=== PATIENT | male | born 1970 | race American Indian/Alaskan Native ===

== ENCOUNTER 2017-06-14 15:04 | Emergency (ER) | payer MEDICAID ==
[2017-06-14 15:09] VITALS: BP 160/85; PULSE 60; RESP 16; O2SAT 99
[2017-06-14 16:47] VITALS: TEMP 100.3
--- NOTE | 2017-06-14 17:10 | ED PDOC ---
HPI: General Adult Time Seen by Provider: 06/14/17 16:48 Chief Complaint (Nursing): Flu-like Symptoms Chief Complaint (Provider): Flu-like Symptoms History Per: Patient History/Exam Limitations: no limitations Onset/Duration Of Symptoms: Hrs (x2) Current Symptoms Are (Timing): Still Present Additional Complaint(s): Fahad Vicente is a 46 year old male with a history of hypertension that presents to the ED with a chief complaint of chills and headache that he has been experiencing for the past two hours. Patient denies any cough and reports that he has not taken and medication for his symptoms. He states that he received his flu vaccination this year. Past Medical History Reviewed: Historical Data, Nursing Documentation, Vital Signs Vital Signs: Last Vital Signs Temp 100.3 F H 06/14/17 16:47 Pulse 60 06/14/17 15:06 Resp 16 06/14/17 15:06 BP 160/85 H 06/14/17 15:06 Pulse Ox 99 06/14/17 17:12 - Medical History PMH: Bipolar Disorder, HTN, Hypercholesterolemia Denies: Diabetes, Hepatitis, HIV, Seizures, Sexually Transmitted Disease - Family History Family History: States: Unknown Family Hx - Immunization History Hx Tetanus Toxoid Vaccination: No Hx Influenza Vaccination: No Hx Pneumococcal Vaccination: No - Home Medications Home Medications: Ambulatory Orders Medication Instructions Recorded Quetiapine Fumarate [Seroquel] 50 mg PO DAILY 07/30/16 Ciprofloxacin [Cipro] 500 mg PO BID #13 tab 07/31/16 Ibuprofen [Motrin] 600 mg PO Q8 PRN #15 tab 06/14/17 Oseltamivir Phosphate [Tamiflu] 75 mg PO BID #10 capsule 06/14/17 - Allergies Allergies/Adverse Reactions: Allergies Allergy/AdvReac Type Severity Reaction Status Date / Time No Known Allergies Allergy Verified 06/14/17 15:06 Review of Systems Constitutional: Positive for: Chills Respiratory: Negative for: Cough Neurological: Positive for: Headache Physical Exam - Reviewed Nursing Documentation Reviewed: Yes Vital Signs Reviewed: Yes - Physical Exam Appears: Positive for: Non-toxic, No Acute Distress Head Exam: Positive for: ATRAUMATIC, NORMOCEPHALIC Skin: Positive for: Normal Color, Warm Eye Exam: Positive for: Normal appearance, EOMI, PERRL ENT: Positive for: Normal ENT Inspection. Negative for: Nasal Congestion, Pharyngeal Erythema Cardiovascular/Chest: Positive for: Regular Rate, Rhythm. Negative for: Murmur Respiratory: Positive for: Normal Breath Sounds. Negative for: Wheezing Neurologic/Psych: Positive for: Alert, Oriented. Negative for: Motor/Sensory Deficits - ECG O2 Sat by Pulse Oximetry: 99 (RA) Pulse Ox Interpretation: Normal - Progress ED Course And Treament: FLU NEG Medical Decision Making Medical Decision Making: Impression: Influenza Plan: * Flu Swab * Reevaluation Scribe Attestation: Documented by Karolina Esposito, acting as a scribe for Fiordaliza Salazar PA-C. Provider Scribe Attestation: All medical record entries made by the Scribe were at my direction and personally dictated by me. I have reviewed the chart and agree that the record accurately reflects my personal performance of the history, physical exam, medical decision making, and the department course for this patient. I have also personally directed, reviewed, and agree with the discharge instructions and disposition. Disposition - Clinical Impression Clinical Impression: Influenza-like symptoms - Patient ED Disposition Is Patient to be Admitted: No - Disposition Referrals: [facility] [Outside] Disposition: Routine/Home Disposition Time: 17:20 Condition: FAIR Prescriptions: Ibuprofen [Motrin] 600 mg PO Q8 PRN #15 tab PRN Reason: Pain, Moderate (4-7) Oseltamivir Phosphate [Tamiflu] 75 mg PO BID #10 capsule Instructions: Fever in Adults (ED) Forms: [employer] (Dominican), [facility] ED School/Work Excuse
== END 2017-06-14 17:33 | disposition home or self-care (01) ==
LOC: H.ER 15:04
DX: R50.9 Fever, unspecified (principal); R51 Headache; E78.00 Pure hypercholesterolemia, unspecified; F31.9 Bipolar disorder, unspecified; I10 Essential (primary) hypertension

== ENCOUNTER 2017-06-21 10:54 | Emergency (ER) | payer MEDICAID ==
[2017-06-21 11:30] VITALS: BP 132/76; PULSE 76; RESP 16; TEMP 98.1; O2SAT 98
--- NOTE | 2017-06-21 11:43 | ED PDOC ---
HPI: General Adult Time Seen by Provider: 06/21/17 10:59 Chief Complaint (Nursing): ENT Problem Chief Complaint (Provider): Right sided nose bleed, 45 minutes History Per: Patient History/Exam Limitations: no limitations Have you had recent travel within the past 21 days to any of the following countries: [place], [place], [place] or [place]?: No Additional Complaint(s): Nosebleed, right for 45 minutes [employer]. Pt states it has slowed down. Pt did not apply direct pressure but was holding paper towels under nostrils to catch the blood. Past Medical History Reviewed: Historical Data, Nursing Documentation, Vital Signs Vital Signs: Last Vital Signs Temp 98.1 F 06/21/17 11:28 Pulse 76 06/21/17 11:28 Resp 16 06/21/17 11:28 BP 132/76 06/21/17 11:28 Pulse Ox 98 06/21/17 11:28 - Medical History PMH: Bipolar Disorder, HTN, Hypercholesterolemia Denies: Diabetes, Hepatitis, HIV, Seizures, Sexually Transmitted Disease - Surgical History Surgical History: No Surg Hx - Family History Family History: States: Unknown Family Hx - Living Arrangements Living Arrangements: With Family - Immunization History Hx Tetanus Toxoid Vaccination: No Hx Influenza Vaccination: No Hx Pneumococcal Vaccination: No - Home Medications Home Medications: Ambulatory Orders Medication Instructions Recorded Quetiapine Fumarate [Seroquel] 50 mg PO DAILY 07/30/16 Ciprofloxacin [Cipro] 500 mg PO BID #13 tab 07/31/16 Ibuprofen [Motrin] 600 mg PO Q8 PRN #15 tab 06/14/17 Oseltamivir Phosphate [Tamiflu] 75 mg PO BID #10 capsule 06/14/17 - Allergies Allergies/Adverse Reactions: Allergies Allergy/AdvReac Type Severity Reaction Status Date / Time No Known Allergies Allergy Verified 06/14/17 15:06 Review of Systems ROS Statement: Except As Marked, All Systems Reviewed And Found Negative Constitutional: Negative for: Fever, Chills Musculoskeletal: Negative for: Neck Pain Neurological: Negative for: Weakness, Altered Mental Status, Headache Physical Exam - Reviewed Nursing Documentation Reviewed: Yes Vital Signs Reviewed: Yes - Physical Exam Appears: Positive for: Well, Non-toxic, No Acute Distress Head Exam: Positive for: ATRAUMATIC, NORMAL INSPECTION, NORMOCEPHALIC Skin: Positive for: Normal Color, Warm, DRY Eye Exam: Positive for: Normal appearance ENT: Negative for: Normal ENT Inspection (Mild bleeding, right ) Neck: Positive for: Normal, Painless ROM Cardiovascular/Chest: Positive for: Regular Rate, Rhythm Respiratory: Positive for: CNT, Normal Breath Sounds Gastrointestinal/Abdominal: Positive for: Normal Exam, Bowel Sounds, Soft Back: Positive for: Normal Inspection Extremity: Positive for: Normal ROM Neurologic/Psych: Positive for: Alert, Oriented - ECG O2 Sat by Pulse Oximetry: 98 Medical Decision Making Medical Decision Making: Discussed humidifier and Vaseline. Disposition - Clinical Impression Clinical Impression: Epistaxis - Patient ED Disposition Is Patient to be Admitted: No - Disposition Disposition: Routine/Home Disposition Time: 11:37 Condition: GOOD Instructions: Nosebleed (ED)
== END 2017-06-21 11:58 | disposition home or self-care (01) ==
LOC: H.ER 10:54
DX: R04.0 Epistaxis (principal); E78.00 Pure hypercholesterolemia, unspecified; F31.9 Bipolar disorder, unspecified; I10 Essential (primary) hypertension